=== PATIENT | male | born 1945 | race Hispanic/Latino ===

== ENCOUNTER 2019-04-03 08:51 | Emergency (ER) | payer MEDICARE ==
[2019-04-03 09:22] VITALS: BP 158/84
--- NOTE | 2019-04-03 09:45 | Emergency Department Report ---
ED General Adult HPI - General Chief complaint: Fall Stated complaint: FALL Time Seen by Provider: 04/03/19 09:26 Source: EMS ( EMS documentation not available at time of chart dictation ), RN notes reviewed Mode of arrival: Stretcher Limitations: Physical Limitation - History of Present Illness Initial comments: This patient is a poor historian. He has a history of anemia, on iron sulfate, hypertension, possible dementia The patient is brought to the hospital today by emergency medical services for reported ground-level fall. The patient is a poor historian. The patient cannot tell me when he fell. The patient denies complaints at this time. Apparently, he was seen at [facility] March 27. It was reported at some point verbally that he may have had old facial injuries. No additional history is available at this time. Currently, the patient is not accompanied by friends, family and no is available at this time for collateral information. He had CT scan of the brain, cervical spine and facial bones in the ER, which demonstrate multiple facial bone fractures. They are fairly complex in nature. Please see the individual rep ort. Contacted [facility], and it was conveyed to me that they did not have any record of the patient visiting their facility, and they did not have any corroborating documentation that the patient has known facial fractures. Therefore, the patient will be transferred to [facility], for evaluation by both trauma surgery, and oral surgery. Given advanced age, multiple complex facial fractures, lack of necessary specialty services at this facility, the patient requires transfer for evaluation for services not available. The patient has an emergent medical condition which cannot be definitively managed at this time. The patient is medically suitable for transfer at this time. The trauma surgeon, Dr. Shoemaker has graciously accepted the patient as a transfer. -: unknown Location: face Radiation: other Quality: other Consistency: other Improves with: other Worsens with: other - Related Data Home Medications Medication Instructions Recorded Confirmed Last Taken ALPRAZolam [Alprazolam] 0.5 mg PO TID 09/20/15 11/02/15 11/01/15 Albuterol Sulfate [Ventolin HFA] 2 puff IH TID 09/20/15 11/02/15 11/01/15 Clopidogrel Bisulfate [Clopidogrel] 75 mg PO QDAY 09/20/15 11/01/15 10/25/15 Duloxetine HCl [Cymbalta] 30 mg PO QDAY 09/20/15 11/02/15 11/01/15 Lisinopril 20 mg PO QDAY 09/20/15 11/02/15 11/01/15 Theophylline Anhydrous ER [Avni-24] 300 mg PO BID 09/20/15 11/02/15 11/01/15 amLODIPine [Norvasc] 10 mg PO DAILY 09/20/15 11/02/15 11/01/15 busPIRone [Buspar] 10 mg PO QDAY 09/20/15 11/02/15 11/01/15 Allergies Allergy/AdvReac Type Severity Reaction Status Date / Time Penicillins Allergy Swelling Verified 11/02/15 09:07 ED Review of Systems ROS: Stated complaint: FALL Other details as noted in HPI Comment: Unobtainable due to pts medical conditions (the patient is a poor historian.) ED Past Medical Hx - Past Medical History Hx Hypertension: Yes Hx Asthma: Yes Hx Dementia: Yes Hx HIV: No - Social History Smoking Status: Unknown if ever smoked - Medications Home Medications: Home Medications Medication Instructions Recorded Confirmed Last Taken Type ALPRAZolam [Alprazolam] 0.5 mg PO TID 09/20/15 11/02/15 11/01/15 History Albuterol Sulfate [Ventolin HFA] 2 puff IH TID 09/20/15 11/02/15 11/01/15 History Clopidogrel Bisulfate [Clopidogrel] 75 mg PO QDAY 09/20/15 11/01/15 10/25/15 History Duloxetine HCl [Cymbalta] 30 mg PO QDAY 09/20/15 11/02/15 11/01/15 History Lisinopril 20 mg PO QDAY 09/20/15 11/02/15 11/01/15 History Theophylline Anhydrous ER [Avni-24] 300 mg PO BID 09/20/15 11/02/15 11/01/15 History amLODIPine [Norvasc] 10 mg PO DAILY 09/20/15 11/02/15 11/01/15 History busPIRone [Buspar] 10 mg PO QDAY 09/20/15 11/02/15 11/01/15 History ED Physical Exam - General Limitations: Physical Limitation General appearance: alert, in no apparent distress - Head Head exam: Present: normocephalic, other (left-sided supraorbital ecchymosis) - Eye Eye exam: Present: normal appearance, PERRL, EOMI - ENT ENT exam: Present: normal exam, normal orophraynx, mucous membranes moist, TM's normal bilaterally, normal external ear exam, other (there is no nasal septal hematoma. There is no hemotympanums) - Neck Neck exam: Present: normal inspection, full ROM. Absent: tenderness, meningismus - Respiratory Respiratory exam: Present: normal lung sounds bilaterally. Absent: respiratory distress - Cardiovascular Cardiovascular Exam: Present: regular rate, normal rhythm, normal heart sounds. Absent: bradycardia, tachycardia, irregular rhythm, systolic murmur, diastolic murmur, rubs, gallop - GI/Abdominal GI/Abdominal exam: Present: soft. Absent: distended, tenderness, guarding, rebound, rigid, pulsatile mass - Rectal Rectal exam: Present: normal inspection, normal rectal tone, black stool, other (chaperoned by ER semiconductor processing group leader David). Absent: heme (-) stool - Extremities Exam Extremities exam: Present: normal inspection, full ROM, other (2+ pulses noted in the bilateral upper, lower extremities. There is no long bone tenderness. Musculoskeletal compartments are soft. The pelvis is stable.). Absent: pedal edema, calf tenderness - Back Exam Back exam: Present: normal inspection. Absent: tenderness, CVA tenderness (R), CVA tenderness (L), paraspinal tenderness, vertebral tenderness - Neurological Exam Neurological exam: Present: alert (patient is awake. The patient follows commands. The patient knows his name. The patient does not know where he is, what year it is, or month it is.), other (there is no facial droop. The tongue is midline. Extraocular movements are intact bilaterally. 5 out of 5 strength in 4 extremities. Sensation is intact to light touch in 4 extremities There is good rectal tone.) - Psychiatric Psychiatric exam: Present: anxious - Skin Skin exam: Present: warm, abrasion, ecchymosis ED Course Vital Signs 04/03/19 09:18 Temperature 97.6 F Pulse Rate 81 Respiratory 18 Rate Blood Pressure 158/84 Blood Pressure 158/84 [Right] O2 Sat by Pulse 98 Oximetry ED Medical Decision Making - Lab Data Result diagrams: 04/03/19 10:06 04/03/19 10:06 Vital Signs 04/03/19 09:18 Temperature 97.6 F Pulse Rate 81 Respiratory 18 Rate Blood Pressure 158/84 Blood Pressure 158/84 [Right] O2 Sat by Pulse 98 Oximetry Lab Results 04/03/19 04/03/19 04/03/19 Range/Units 10:06 10:06 10:06 WBC 10.2 (4.5-11.0) K/mm3 RBC 3.89 (3.65-5.03) M/mm3 Hgb 10.6 L (11.8-15.2) gm/dl Hct 31.7 L (35.5-45.6) % MCV 81 L (84-94) fl MCH 27 L (28-32) pg MCHC 33 (32-34) % RDW 21.9 H (13.2-15.2) % Plt Count 212 (140-440) K/mm3 Sodium 139 (137-145) mmol/L Potassium 3.2 L (3.6-5.0) mmol/L Chloride 99.4 (98-107) mmol/L Carbon Dioxide 27 (22-30) mmol/L Anion Gap 16 mmol/L BUN 28 H (9-20) mg/dL Creatinine 1.6 H (0.8-1.5) mg/dL Estimated GFR 43 ml/min BUN/Creatinine Ratio 18 % Glucose 92 (75-100) mg/dL Calcium 9.9 (8.4-10.2) mg/dL Magnesium 2.40 H (1.7-2.3) mg/dL Total Creatine Kinase 43 L (55-170) units/L - EKG Data -: EKG Interpreted by [facility] EKG shows normal: sinus rhythm - EKG Data 04/03/19 12:11 The EKG shows a sinus rhythm, 80 bpm, left axis deviation, left anterior fascicular block, QTC is prolonged, left ventricular hypertrophy, the EKG is abnormal, the EKG is not consistent with ST elevation myocardial infarction. - Radiology Data Radiology results: report reviewed, image reviewed Print Report Referring Physician: ODIN KHAN Patient Name: ODIN SILVA Date of : 1945 Sex: Male Report Date: 2019-04-03 Report Status: Finalized Findings [facility] [address] [place] [address] Cat Scan Report Signed Patient: ODIN SILVA MR# : [id number] : 1945 Acct:[id number] Age/Sex: 73 / M ADM Date: 04/03/19 Loc: ED Attending Dr: Ordering Physician: ODIN KHAN MD Date of Service: 04/03/19 Procedure(s): CT facial bones wo con Accession Number(s): [id number] cc: ODIN KHAN MD CT facial bones wo con INDICATION / CLINICAL INFORMATION: 73 years Male; fall facial abrasions contusions. TECHNIQUE: Thin cut axial images obtained to the facial bones. Sagittal and coronal reconstructions performed. All CT scans at this location are performed using CT dose reduction for ALARA by means of automated exposure control. COMPARISON: None available. FINDINGS: Comminuted inferior orbital wall fracture is seen on the left, with fragments extending up to 5 mm into the maxillary antrum. There is a slight comminuted fracture of the lateral orbital wall on the left. There is also a minimally displaced fracture along the superolateral orbital rim on the left. No significant intraorbital hematoma seen. The globe is normal in appearance. Comminuted fracture of the left zygomatic arch is seen with minimal bony displacement noted. There are mildly comminuted fractures of the anterior and lateral wade of the left maxillary antrum, with some component of minimal displacement and slight overlap of fragments noted. The left maxillary antrum is nearly completely opacified with blood products. Constellation of these findings is somewhat like a tripod fracture on the left. Old condylar neck fracture seen on the right. The condylar head of the mandible is displaced anteriorly from the glenoid fossa of the right temporomandibular joint. Mucous retention cyst/polyps seen in the right maxillary antrum. There is nasal septum deviation leftward directed nasal spur seen-apex of the level of middle meatus. Subcutaneous soft tissue swelling is seen in the left periorbital region, superolaterally and along the expected location of the zygomatic arch in the left malar region. Atherosclerotic disease is seen in the anterior circulation. IMPRESSION: 1. Multiple facial fractures as described above. Signer Name: Andrea Hoyt MD, III Signed: 04/03/2019 11:29 AM Workstation Name: [id number] Transcribed By: HR Dictated By: Andrea Hoyt MD Electronically Authenticated By: Andrea Hoyt MD Signed Date/Time: 04/03/19 1129 Report Referring Physician: ODIN KHAN Patient Name: ODIN SILVA Date of : 1945 Sex: Male Report Date: 2019-04-03 Report Status: Finalized Findings [address] [address] Cat Scan Report Signed Patient: ODIN SILVA MR# : [id number] : 1945 Acct:[id number] Age/Sex: 73 / M ADM Date: 04/03/19 Loc: ED Attending Dr: Ordering Physician: ODIN KHAN MD Date of Service: 04/03/19 Procedure(s): CT head/brain wo con Accession Number(s): [id number] cc: ODIN KHAN MD Head CT without intravenous contrast INDICATION: Closed head trauma today COMPARISON: None FINDINGS: The ventricles are normal in size and position. No hemorrhage or extra-axial fluid collection. No edema or mass effect. 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 A 1 cm low density in the left occipital white matter is nonspecific.. Portions of the sinuses visualized show opacification of the left maxillary sinus with fracture lines present and mucous retention cysts in the right maxillary sinus with right anterior fracture. Left orbital fracture is seen as well as fractures through the left zygomatic arch. Mastoid air cells are well aerated.. No skull fracture identified. IMPRESSION: No acute intracranial abnormality. Facial fractures. Automated exposure control was utilized to diminish radiation dose Signer Name: Thomas Gleason MD Signed: 04/03/2019 11:14 AM Workstation Name: [id number] Transcribed By: JM Dictated By: Thomas Gleason MD Electronically Authenticated By: Thomas Gleason MD Signed Date/Time: 04/03/19 1114 Print Report Referring Physician: ODIN KHAN Patient Name: ODIN SILVA Date of : 1945 Sex: Male Report Date: 2019-04-03 Report Status: Finalized Findings [address] [address] Cat Scan Report Signed Patient: ODIN SILVA MR# : [id number] : 1945 Acct:[id number] Age/Sex: 73 / M ADM Date: 04/03/19 Loc: ED Attending Dr: Ordering Physician: ODIN KHAN MD Date of Service: 04/03/19 Procedure(s): CT cervical spine wo con Accession Number(s): [id number] cc: ODIN KHAN MD CT cervical spine wo con INDICATION / CLINICAL INFORMATION: 73 years Male; fall facial abrasions contusions. TECHNIQUE: Axial CT images of the cervical spine were obtained. Sagittal and coronal reformatted images were produced. All CT scans at this location are performed using CT dose reduction for ALARA by means of automated exposure control. COMPARISON: None available. FINDINGS: POST-SURGICAL CHANGES: None. ALIGNMENT: Normal cervical lordosis seen without significant scoliosis. VERTEBRAE: No signs of fracture. Vertebral bodies are grossly normal in height throughout. There is osseous foraminal narrowing on the left at C3-4 and C5-6 from uncinate and/or facet hypertrophy. Similar findings seen on the right at C3-4, C4-5, C5-6, C6-7. Anterior spondylosis seen at C5-6, C4-5, and C3-4. Mild to moderate facet hypertrophy seen at multiple levels. Most marked findings may be at C3-4 and C4-5. INTRAVERTEBRAL DISCS: Interbody fusion may be present at C6-7. There is disc space narrowing at C5- C6, C7-T1, and C4-5. Mild disc disease seen at various levels with no dominant herniation. Most marked findings may be at C4-5. No significant canal stenosis appreciated. PARASPINAL SOFT TISSUES: No significant abnormality. ADDITIONAL FINDINGS: Old, displaced fracture of the condylar neck of the mandible seen on the right. Please clinically correlate. The condylar head is displaced anterior to the glenoid fossa. IMPRESSION: 1. No signs of acute bony trauma to the cervical spine. 2. Old fracture of the condylar neck of the mandible on the right, as described above. Signer Name: Andrea Hoyt MD, III Signed: 04/03/2019 11:19 AM Workstation Name: [id number] Transcribed By: Dictated By: Andrea Hoyt MD Electronically Authenticated By: Andrea Hoyt MD Signed Date/Time: 04/03/19 1119 Print Report Referring Physician: ODIN KHAN Patient Name: ODIN SILVA Date of : 1945 Sex: Male Report Date: 2019-04-03 Report Status: Finalized Findings [address] [address] XRay Report Signed Patient: ODIN ISLVA MR# : [id number] : 1945 Acct:[id number] Age/Sex: 73 / M ADM Date: 04/03/19 Loc: ED Attending Dr: Ordering Physician: ODIN KHAN MD Date of Service: 04/03/19 Procedure(s): XR pelvis 1-2V Accession Number(s): [id number] cc: ODIN KHAN MD Fluoro Time In Minutes: AP pelvis INDICATION: Pain following fall today FINDINGS: The hip joints are grossly intact. No fracture or diastasis. SI joints are widely patent. No significant abnormality. Signer Name: Thomas Gleason MD Signed: 04/03/2019 10:53 AM Workstation Name: [id number] Transcribed By: JM Dictated By: Thomas Gleason MD Electronically Authenticated By: Thomas Gleason MD Signed Date/Time: 04/03/19 1053 Print Report Referring Physician: ODIN KHAN Patient Name: ODIN SILVA Date of : 1945 Sex: Male Report Date: 2019-04-03 Report Status: Finalized Findings [address] [address] XRay Report Signed Patient: ODIN SILVA MR# : [id number] : 1945 Acct:[id number] Age/Sex: 73 / M ADM Date: 04/03/19 Loc: ED Attending Dr: Ordering Physician: ODIN KHAN MD Date of Service: 04/03/19 Procedure(s): XR chest 1V ap Accession Number(s): [id number] cc: ODIN KHAN MD Fluoro Time In Minutes: CHEST 1 VIEW INDICATION / CLINICAL INFORMATION: fall weak. COMPARISON: None available. FINDINGS: SUPPORT DEVICES: None. HEART / MEDIASTINUM: No significant abnormality. LUNGS / PLEURA: No significant pulmonary or pleural abnormality. No pneumothorax. ADDITIONAL FINDINGS: No significant additional findings. IMPRESSION: 1. No significant change Signer Name: Thomas Gleason MD Signed: 04/03/2019 10:53 AM Workstation Name: [id number] Transcribed By: ANASTACIA Dictated By: Thomas Gleason MD Electronically Authenticated By: Thomas Gleason MD Signed Date/Time: 04/03/191052 DD/ 52 TD/TT: - Medical Decision Making Differential diagnosis, including not limited to: Multiple facial fractures, intracranial injury, cervical spine injury, pneumonia, urinary tract infection, dehydration, electrolyte derangement. Assessment and plan: 73-year-old gentleman, status post reported fall, multiple complex facial fractures of unknown chronicity, appear to be acute/subacute, without corroborating documentation of prior evaluation. Patient requires evaluation at trauma facility for higher level of care. He will be given IV fluids, tetanus vaccination, potassium will be repleted, emp iric prophylactic doxycycline. Critical care attestation.: If time is entered above; I have spent that time in minutes in the direct care of this critically ill patient, excluding procedure time. ED Disposition Clinical Impression: Multiple facial bone fractures, Fall, NAOMI (acute kidney injury), Hypokalemia Disposition: DC/TX- [facility] IP Is pt being admited?: No Does the pt Need Aspirin: No Condition: Serious Referrals: PRIMARY CARE, [Primary Care Provider] - 3-5 Days
[2019-04-03 10:23] LABS: Hematocrit 31.7 % (35.5-45.6); Hemoglobin 10.6 gm/dl (11.8-15.2); Mean Corpuscular HGB Conc 33 % (32-34); Mean Corpuscular Volume 81 fl (84-94); Platelet Count 212 K/mm3 (140-440); Red Blood Count 3.89 M/mm3 (3.65-5.03)
[2019-04-03 10:24] LABS: Red Cell Distribution Width 21.9 % (13.2-15.2)
[2019-04-03 10:36] LABS: Calcium 9.9 mg/dL (8.4-10.2)
[2019-04-03] MEDS ORDERED: K-DUR PO ONE (10:54)
[2019-04-03] MEDS ORDERED: NACL 0.9% 500 ML 500 ML IV ONE (10:54)
--- NOTE | 2019-04-03 10:57 | XRay Report ---
AP pelvis INDICATION: Pain following fall today FINDINGS: The hip joints are grossly intact. No fracture or diastasis. SI joints are widely patent. N o significant abnormality. Signer Name: Thomas Gleason MD Signed: 04/03/2019 10:53 AM Workstation Name: [id number]
--- NOTE | 2019-04-03 10:58 | XRay Report ---
CHEST 1 VIEW INDICATION / CLINICAL INFORMATION: fall weak. COMPARISON: None available. FINDINGS: SUPPORT DEVICES: None. HEART / MEDIASTINUM: No significant abnormality. LUNGS / PLEURA: No significant pulmonary or pleural abnormality. No pneumothorax. ADDITIONAL FINDINGS: No significant additional findings. IMPRESSION: 1. No significant change Signer Name: Thomas Gleason MD Signed: 04/03/2019 10:53 AM Workstation Name: [id number]
--- NOTE | 2019-04-03 11:19 | Cat Scan Report ---
Head CT without intravenous contrast INDICATION: Closed head trauma today COMPARISON: None FINDINGS: The ventricles are normal in size and position. No hemorrhage or extra-axial fluid collecti on. No edema or mass effect. 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 A 1 cm low density in the left occipital white matter is nonspecific.. Portions o f the sinuses visualized show opacification of the left maxillary sinus with fracture lines present a nd mucous retention cysts in the right maxillary sinus with right anterior fracture. Left orbital fra cture is seen as well as fractures through the left zygomatic arch. Mastoid air cells are well aerate d.. No skull fracture identified. IMPRESSION: No acute intracranial abnormality. Facial fractures. Automated exposure control was utilized to diminish radiation dose Signer Name: Thomas Gleason MD Signed: 04/03/2019 11:14 AM Workstation Name: [id number]
--- NOTE | 2019-04-03 11:24 | Cat Scan Report ---
CT cervical spine wo con INDICATION / CLINICAL INFORMATION: 73 years Male; fall facial abrasions contusions. TECHNIQUE: Axial CT images of the cervical spine were obtained. Sagittal and coronal reformatted images were pr oduced. All CT scans at this location are performed using CT dose reduction for ALARA by means of aut omated exposure control. COMPARISON: None available. FINDINGS: POST-SURGICAL CHANGES: None. ALIGNMENT: Normal cervical lordosis seen without significant scoliosis. VERTEBRAE: No signs of fracture. Vertebral bodies are grossly normal in height throughout. There is osseous foraminal narrowing on the left at C3-4 and C5-6 from uncinate and/or facet hypertro phy. Similar findings seen on the right at C3-4, C4-5, C5-6, C6-7. Anterior spondylosis seen at C5-6, C4-5, and C3-4. Mild to moderate facet hypertrophy seen at multiple levels. Most marked findings may be at C3-4 and C 4-5. INTRAVERTEBRAL DISCS: Interbody fusion may be present at C6-7. There is disc space narrowing at C5-C6 , C7-T1, and C4-5. Mild disc disease seen at various levels with no dominant herniation. Most marked findings may be at C4-5. No significant canal stenosis appreciated. PARASPINAL SOFT TISSUES: No significant abnormality. ADDITIONAL FINDINGS: Old, displaced fracture of the condylar neck of the mandible seen on the right. Please clinically correlate. The condylar head is displaced anterior to the glenoid fossa. IMPRESSION: 1. No signs of acute bony trauma to the cervical spine. 2. Old fracture of the condylar neck of the mandible on the right, as described above. Signer Name: Andrea Hoyt MD, III Signed: 04/03/2019 11:19 AM Workstation Name: [id number]
--- NOTE | 2019-04-03 11:34 | Cat Scan Report ---
CT facial bones wo con INDICATION / CLINICAL INFORMATION: 73 years Male; fall facial abrasions contusions. TECHNIQUE: Thin cut axial images obtained to the facial bones. Sagittal and coronal reconstructions performed. A ll CT scans at this location are performed using CT dose reduction for ALARA by means of automated ex posure control. COMPARISON: None available. FINDINGS: Comminuted inferior orbital wall fracture is seen on the left, with fragments extending up to 5 mm in to the maxillary antrum. There is a slight comminuted fracture of the lateral orbital wall on the lef t. There is also a minimally displaced fracture along the superolateral orbital rim on the left. No s ignificant intraorbital hematoma seen. The globe is normal in appearance. Comminuted fracture of the left zygomatic arch is seen with minimal bony displacement noted. There are mildly comminuted fractures of the anterior and lateral wade of the left maxillary antrum, with some component of minimal displacement and slight overlap of fragments noted. The left maxillar y antrum is nearly completely opacified with blood products. Constellation of these findings is somewhat like a tripod fracture on the left. Old condylar neck fracture seen on the right. The condylar head of the mandible is displaced anterior ly from the glenoid fossa of the right temporomandibular joint. Mucous retention cyst/polyps seen in the right maxillary antrum. There is nasal septum deviation leftward directed nasal spur seen-apex of the level of middle meatus. Subcutaneous soft tissue swelling is seen in the left periorbital region, superolaterally and along t he expected location of the zygomatic arch in the left malar region. Atherosclerotic disease is seen in the anterior circulation. IMPRESSION: 1. Multiple facial fractures as described above. Signer Name: Andrea Hoyt MD, III Signed: 04/03/2019 11:29 AM Workstation Name: [id number]
[2019-04-03] MEDS: KCL 10MEQ/100ML 10 MEQ/100 ML BAG IV SCH ×2 (11:51→12:48)
[2019-04-03] MEDS ORDERED: VIBRAMYCIN PO ONE (12:13)
[2019-04-03] MEDS ORDERED: BOOSTRIX IM ONE (12:13)
== END 2019-04-03 14:23 | disposition short-term general hospital (02) ==
LOC: ED 08:51
DX: S02.92XD Unspecified fracture of facial bones, subsequent encounter for fracture with routine healing (principal); E87.6 Hypokalemia; N17.9 Acute kidney failure, unspecified; I10 Essential (primary) hypertension; J45.909 Unspecified asthma, uncomplicated; F03.90 Unspecified dementia, unspecified severity, without behavioral disturbance, psychotic disturbance, mood disturbance, and anxiety; Z79.899 Other long term (current) drug therapy; Z88.0 Allergy status to penicillin
CPT/HCPCS: 36415; 70450; 70486; 71045; 72125; 72170; 80048; 82271; 82550; 83735; 85027; 90471; 90715; 93005; 93010; 96365; 99285; J3480; J7040

== ENCOUNTER 2021-03-03 09:47 | Emergency (ER) | payer MEDICARE ==
[2021-03-03] MEDS ORDERED: SODIUM CHLORIDE 0.9% 1000 ML 1,000 ML IV ONE ×3 (09:59→10:38)
[2021-03-03] MEDS: NORepinephrine/NS 4 MG-250 ML 4 MG/250 ML BAG IV SCH ×2 (10:00→18:04)
--- NOTE | 2021-03-03 10:44 | XRay Report ---
CHEST 1 VIEW 03/03/2021 9:34 AM INDICATION / CLINICAL INFORMATION: Post cardiac arrest. Prehospital intubation. COMPARISON: 04/03/19. FINDINGS: SUPPORT DEVICES: The tip of the endotracheal tube is approximately 6 cm above the chrissy. The tip of the nasogastric tube overlies the gastric body. HEART / MEDIASTINUM: The heart size and pulmonary vasculature are normal. LUNGS / PLEURA: There is mild to moderate pleuroparenchymal disease in the right mid to lower hemitho rax with mild associated volume loss. The left lung is clear. No pneumothorax. ADDITIONAL FINDINGS: No significant additional findings. IMPRESSION: 1. Endotracheal tube in satisfactory position. 2. Mild to moderate pleuroparenchymal opacity in the right mid to lower hemithorax. Aspiration pneumo kiley should be considered. Signer Name: Albin Mayer MD Signed: 03/03/2021 10:40 AM Workstation Name: [id number]
[2021-03-03 10:48] LABS: Hematocrit 26.7 % (35.5-45.6); Hemoglobin 8.3 gm/dl (11.8-15.2); Mean Corpuscular HGB Conc 31 % (32-34); Mean Corpuscular Volume 100 fl (84-94); Platelet Count 208 K/mm3 (140-440); Red Blood Count 2.66 M/mm3 (3.65-5.03); Red Cell Distribution Width 15.8 % (13.2-15.2)
[2021-03-03] MEDS ORDERED: metroNIDAZOLE/NS 500 MG/100 ML 500 MG/100 ML BAG IV ONE (10:48)
[2021-03-03 10:50] LABS: INR 1.37 (0.87-1.13)
--- NOTE | 2021-03-03 10:57 | Emergency Department Report ---
ED CPR HPI - General Stated Complaint: CARIDAC ARREST Time Seen by Provider: 03/03/21 09:55 Source: EMS, old records reviewed ([facility]) Mode of arrival: Stretcher Limitations: Altered Mental Status, Physical Limitation - History of Present Illness Initial Comments: 75-year-old male with a past medical history of COPD, Alzheimer's disease, COVID-19 diagnosis February 15, chronic aphasia,major depressive disorder, and hypertension presents to the hospital from [facility] halfway for cardiopulmonary arrest. Patient last known well time was 8:30 AM. Patient was eating breakfast and likely aspirated/choked as per EMS. EMS arrival at 9:10 a.m. with bystander CPR in progress. Patient orally intubated with 7.0 ET tube with food parts particles noted in the airway. Breath sounds auscultated and there was capnometer color change after intubation. Patient in PEA arrest upon EMS arrival and throughout duration of resuscitation. Patient received total of 2 epinephrine boluses and 1 amp of sodium bicarb. Accu-Chek not obtained. CPR in progress upon EMS arrival. - Related Data Home Medications Medication Instructions Recorded Confirmed Last Taken ALPRAZolam [Alprazolam] 0.5 mg PO TID 09/20/15 11/02/15 11/01/15 Albuterol Sulfate [Ventolin HFA] 2 puff IH TID 09/20/15 11/02/15 11/01/15 Clopidogrel Bisulfate [Clopidogrel] 75 mg PO QDAY 09/20/15 11/01/15 10/25/15 Duloxetine HCl [Cymbalta] 30 mg PO QDAY 09/20/15 11/02/15 11/01/15 Lisinopril 20 mg PO QDAY 09/20/15 11/02/15 11/01/15 Theophylline Anhydrous ER (Nf) 300 mg PO BID 09/20/15 11/02/15 11/01/15 [Avni-24] amLODIPine [Norvasc] 10 mg PO DAILY 09/20/15 11/02/15 11/01/15 busPIRone [Buspar] 10 mg PO QDAY 09/20/15 11/02/15 11/01/15 Allergies Allergy/AdvReac Type Severity Reaction Status Date / Time Penicillins Allergy Swelling Verified 11/02/15 09:07 ED Review of Systems ROS: Stated complaint: CARIDAC ARREST Other details as noted in HPI Comment: All other systems reviewed and negative ED Past Medical Hx - Past Medical History Hx Hypertension: Yes Hx Asthma: Yes Hx Dementia: Yes Hx HIV: No - Social History Smoking Status: Unknown if ever smoked - Medications Home Medications: Home Medications Medication Instructions Recorded Confirmed Last Taken Type ALPRAZolam [Alprazolam] 0.5 mg PO TID 09/20/15 11/02/15 11/01/15 History Albuterol Sulfate [Ventolin HFA] 2 puff IH TID 09/20/15 11/02/15 11/01/15 History Clopidogrel Bisulfate [Clopidogrel] 75 mg PO QDAY 09/20/15 11/01/15 10/25/15 History Duloxetine HCl [Cymbalta] 30 mg PO QDAY 09/20/15 11/02/15 11/01/15 History Lisinopril 20 mg PO QDAY 09/20/15 11/02/15 11/01/15 History Theophylline Anhydrous ER (Nf) 300 mg PO BID 09/20/15 11/02/15 11/01/15 History [Avni-24] amLODIPine [Norvasc] 10 mg PO DAILY 09/20/15 11/02/15 11/01/15 History busPIRone [Buspar] 10 mg PO QDAY 09/20/15 11/02/15 11/01/15 History ED Physical Exam - Other Other exam information: General: Unresponsive Head: Atraumatic Eyes: Pupils equal reactive to light ENT: Orally intubated 7.0 ET tube 23 at Neck: Normal appearance, no midline tenderness Chest: No spontaneous respirations, clear equal bilaterally with bagging CV: Pulseless upon arrival with organized narrow complex QRS on the monitor Abdomen: Soft, normal bowel sounds, nontender, nondistended, no rebound or guarding Back: Normal inspection Extremity: No deformity Neuro: Unresponsive, no spontaneous movement, GCS Skin: Warm, bruising to anterior chest wall area of chest compressions ED Course Vital Signs 03/03/21 03/03/21 03/03/21 09:58 10:00 10:16 Temperature Pulse Rate 121 H 109 H Respiratory Rate Blood Pressure 171/90 O2 Sat by Pulse 93 32 L Oximetry 03/03/21 03/03/21 03/03/21 10:30 10:45 10:51 Temperature Pulse Rate 97 H 94 H 82 Respiratory 20 20 Rate Blood Pressure 91/53 97/55 100/51 O2 Sat by Pulse 100 96 95 Oximetry 03/03/21 03/03/21 03/03/21 11:00 11:15 11:30 Temperature Pulse Rate 77 69 70 Respiratory 21 20 15 Rate Blood Pressure 93/50 92/46 96/52 O2 Sat by Pulse 90 97 Oximetry 03/03/21 03/03/21 03/03/21 11:33 11:41 11:45 Temperature 92.3 F L Pulse Rate 71 Respiratory 13 Rate Blood Pressure 86/52 O2 Sat by Pulse 83 L 80 L Oximetry 03/03/21 03/03/21 03/03/21 12:00 12:15 12:30 Temperature Pulse Rate 73 75 78 Respiratory 15 16 15 Rate Blood Pressure 102/56 107/55 106/56 O2 Sat by Pulse 90 88 Oximetry 03/03/21 03/03/21 03/03/21 12:45 13:00 13:15 Temperature Pulse Rate 78 82 81 Respiratory 15 13 17 Rate Blood Pressure 85/46 98/54 107/64 O2 Sat by Pulse 76 L 82 L Oximetry 03/03/21 03/03/21 03/03/21 13:16 13:30 13:45 Temperature Pulse Rate 83 82 81 Respiratory 14 22 Rate Blood Pressure 96/60 103/64 90/52 O2 Sat by Pulse 81 L 87 86 Oximetry 03/03/21 03/03/21 03/03/21 14:00 14:15 14:30 Temperature Pulse Rate 81 81 82 Respiratory 21 22 28 H Rate Blood Pressure 91/59 108/66 113/64 O2 Sat by Pulse 87 93 Oximetry 03/03/21 03/03/21 03/03/21 14:45 15:00 15:15 Temperature Pulse Rate 83 84 85 Respiratory 20 27 H 26 H Rate Blood Pressure 103/64 109/68 104/63 O2 Sat by Pulse 89 83 L Oximetry 03/03/21 03/03/21 03/03/21 15:30 15:45 16:00 Temperature Pulse Rate 86 86 87 Respiratory 18 21 30 H Rate Blood Pressure 119/69 112/67 106/71 O2 Sat by Pulse 83 L 85 84 Oximetry 03/03/21 03/03/21 03/03/21 16:15 16:16 16:30 Temperature Pulse Rate 88 88 87 Respiratory 18 27 H Rate Blood Pressure 110/68 110/68 111/59 O2 Sat by Pulse 80 L 90 80 L Oximetry 03/03/21 03/03/21 03/03/21 16:45 17:00 19:43 Temperature Pulse Rate 87 88 0 L Respiratory 25 H 25 H Rate Blood Pressure 106/66 102/63 0/0 O2 Sat by Pulse 83 L 0 L Oximetry - Reevaluation(s) Reevaluation #1: 03/03/21 Resuscitation continued upon patient arrival to the ED. Patient received dose of epi with return of spontaneous circulation. Levophed initiated for hypotension along with normal saline bolus. While prepping to place central line patient was noted to be pulseless with a systolic pressure of 48 noted on a BP monitor. Chest compressions briefly resumed with an additional dose of epinephrine with return of spontaneous circulation. Ventilator FiO2 increased from 50% to 100%. Central lines placed by me, NG tube, and Butler placed by nurse, EKG obtained without signs of ST elevation IN. Fluid boluses on Levophed continued - Consultations Consultation #1: 03/03/21 12:36 Case discussed with critical care attending Dr. Hernandez. ABG results discussed. Call transfered to respiratory therapist Lay to make appropriate changes - Central Line Placement Right Femoral Consent Obtained: emergent situation Time Out Performed: Yes Patient Placed on Monitor/Pulse Ox: Yes Prep: mask, gown, gloves Central Line Prep: Chlorhexidine scrub Ultrasound Used for Placement: No Central Line Lumen Inserted: triple Reason for Insertion: Volume Resuscitation Bloods Obtained for Lab: Yes Central Line Position: good blood return, sutured in place with nyl Dressing Applied: Tegaderm Patient Tolerated Procedure: well Complications: none ED Medical Decision Making - Lab Data Result diagrams: 03/03/21 10:23 03/03/21 10:23 Lab Results 03/03/21 03/03/21 03/03/21 Range/Units 10:21 10:23 10:23 WBC 24.7 H (4.5-11.0) K/mm3 RBC 2.66 L (3.65-5.03) M/mm3 Hgb 8.3 L (11.8-15.2) gm/dl Hct 26.7 L (35.5-45.6) % MCV 100 H (84-94) fl MCH 31 (28-32) pg MCHC 31 L (32-34) % RDW 15.8 H (13.2-15.2) % Plt Count 208 (140-440) K/mm3 Lymph # (Auto) Boom Master Add Manual Diff Complete Total Counted 100 Seg Neuts % (Manual) 54.0 (40.0-70.0) % Lymphocytes % (Manual) 29.0 (13.4-35.0) % Reactive Lymphs % (Man) 2.0 % Monocytes % (Manual) 6.0 (0.0-7.3) % Metamyelocytes % 7.0 % Myelocytes % 2.0 % Nucleated RBC % Not Reportable Seg Neutrophils # Man 13.3 H (1.8-7.7) K/mm3 Band Neutrophils # 0.0 K/mm3 Lymphocytes # (Manual) 7.2 H (1.2-5.4) K/mm3 Abs React Lymphs (Man) 0.5 K/mm3 Monocytes # (Manual) 1.5 H (0.0-0.8) K/mm3 Eosinophils # (Manual) 0.0 (0.0-0.4) K/mm3 Basophils # (Manual) 0.0 (0.0-0.1) K/mm3 Metamyelocytes # 1.7 K/mm3 Myelocytes # 0.5 K/mm3 Promyelocytes # 0.0 K/mm3 Blast Cells # 0.0 K/mm3 WBC Morphology Not Reportable Hypersegmented Neuts Not Reportable Hyposegmented Neuts Not Reportable Hypogranular Neuts Not Reportable Smudge Cells Not Reportable Toxic Granulation Not Reportable Toxic Vacuolation Not Reportable Dohle Bodies Not Reportable Pelger-Huet Anomaly Not Reportable Rober Rods Not Reportable Platelet Estimate Consistent w auto Clumped Platelets Not Reportable Plt Clumps, EDTA Not Reportable Large Platelets Not Reportable Giant Platelets Not Reportable Platelet Satelliting Not Reportable Plt Morphology Comment Not Reportable RBC Morphology Normal Dimorphic RBCs Not Reportable Polychromasia Not Reportable Hypochromasia Not Reportable Poikilocytosis Not Reportable Anisocytosis Not Reportable Microcytosis Not Reportable Macrocytosis Not Reportable Spherocytes Not Reportable Pappenheimer Bodies Not Reportable Sickle Cells Not Reportable Target Cells Not Reportable Tear Drop Cells Not Reportable Ovalocytes Not Reportable Helmet Cells Not Reportable [place] Bodies Not Reportable [place] Rings Not Reportable [place] Cells Not Reportable Bite Cells Not Reportable Crenated Cell Not Reportable Elliptocytes Not Reportable Acanthocytes (Spur) Not Reportable Rouleaux Not Reportable Hemoglobin C Crystals Not Reportable Schistocytes Not Reportable Malaria parasites Not Reportable Richard Bodies Not Reportable Hem Pathologist Commnt No PT (12.2-14.9) Sec. INR (0.87-1.13) APTT (24.2-36.6) Sec. ABG pH 7.033 L (7.320-7.450) POC ABG pCO2 44.1 (32.0-48.0) mmHg POC ABG pO2 263.7 H (83-108) mmHg POC ABG HCO3 11.5 ABG O2 Saturation 99.4 (0-100) POC ABG Base Excess -18.3 ABG Hemoglobin 9.1 L (12.0-17.5) ABG Oxyhemoglobin 98.5 H (94-98) ABG Methemoglobin 0.3 (0.0-1.5) ABG Sodium 139.2 (136.0-145.0) mmol/L ABG Potassium 4.1 (3.40-4.50) mmol/L ABG Chloride 111.0 H (98-107) mmol/L ABG Glucose 255 H (65-95) mg/dL Carboxyhemoglobin 0.6 (0.5-1.5) FiO2 % 100.0 Sodium 143 (137-145) mmol/L Potassium 4.4 (3.6-5.0) mmol/L Chloride 108.4 H (98-107) mmol/L Carbon Dioxide 14 L (22-30) mmol/L Anion Gap 25 mmol/L BUN 28 H (9-20) mg/dL Creatinine 1.2 (0.8-1.3) mg/dL Estimated GFR 59 ml/min BUN/Creatinine Ratio 23 % Glucose 282 H (75-100) mg/dL Lactic Acid (0.7-2.0) mmol/L Calcium 8.2 L (8.4-10.2) mg/dL Magnesium (1.7-2.3) mg/dL Total Bilirubin 0.70 (0.1-1.2) mg/dL AST 392 H (5-40) units/L ALT 229 H (7-56) units/L Alkaline Phosphatase 138 H (35-129) units/L Troponin T < 0.010 (0.00-0.029) ng/mL Total Protein 4.0 L (6.3-8.2) g/dL Albumin 2.2 L (3.9-5) g/dL Albumin/Globulin Ratio 1.2 % Arterial Blood Glucose 255 H (65-95) mg/dL Arterial Blood Ionized Calcium 4.5 L (4.6-5.3) mg/dL Urine Color (Yellow) Urine Turbidity (Clear) Urine pH (5.0-7.0) Ur Specific [place] (1.003-1.030) Urine Protein (Negative) mg/dL Urine Glucose (UA) (Negative) mg/dL Urine Ketones (Negative) mg/dL Urine Blood (Negative) Urine Nitrite (Negative) Urine Bilirubin (Negative) Urine Urobilinogen (<2.0) mg/dL Ur Leukocyte Esterase (Negative) Urine WBC (Auto) (0.0-6.0) /HPF Urine RBC (Auto) (0.0-6.0) /HPF Hyaline Casts /LPF Urine Mucus /HPF 03/03/21 03/03/21 03/03/21 Range/Units 10:23 10:23 10:23 WBC (4.5-11.0) K/mm3 RBC (3.65-5.03) M/mm3 Hgb (11.8-15.2) gm/dl Hct (35.5-45.6) % MCV (84-94) fl MCH (28-32) pg MCHC (32-34) % RDW (13.2-15.2) % Plt Count (140-440) K/mm3 Lymph # (Auto) Add Manual Diff Total Counted Seg Neuts % (Manual) (40.0-70.0) % Lymphocytes % (Manual) (13.4-35.0) % Reactive Lymphs % (Man) % Monocytes % (Manual) (0.0-7.3) % Metamyelocytes % % Myelocytes % % Nucleated RBC % Seg Neutrophils # Man (1.8-7.7) K/mm3 Band Neutrophils # K/mm3 Lymphocytes # (Manual) (1.2-5.4) K/mm3 Abs React Lymphs (Man) K/mm3 Monocytes # (Manual) (0.0-0.8) K/mm3 Eosinophils # (Manual) (0.0-0.4) K/mm3 Basophils # (Manual) (0.0-0.1) K/mm3 Metamyelocytes # K/mm3 Myelocytes # K/mm3 Promyelocytes # K/mm3 Blast Cells # K/mm3 WBC Morphology Hypersegmented Neuts Hyposegmented Neuts Hypogranular Neuts Smudge Cells Toxic Granulation Toxic Vacuolation Dohle Bodies Pelger-Huet Anomaly Rober Rods Platelet Estimate Clumped Platelets Plt Clumps, EDTA Large Platelets Giant Platelets Platelet Satelliting Plt Morphology Comment RBC Morphology Dimorphic RBCs Polychromasia Hypochromasia Poikilocytosis Anisocytosis Microcytosis Macrocytosis Spherocytes Pappenheimer Bodies Sickle Cells Target Cells Tear Drop Cells Ovalocytes Helmet Cells [place] Bodies [place] Rings Gonzalo Cells Bite Cells Crenated Cell Elliptocytes Acanthocytes (Spur) Rouleaux Hemoglobin C Crystals Schistocytes Malaria parasites Richard Bodies Hem Pathologist Commnt PT 17.4 H (12.2-14.9) Sec. INR 1.37 H (0.87-1.13) APTT 44.0 H (24.2-36.6) Sec. ABG pH (7.320-7.450) POC ABG pCO2 (32.0-48.0) mmHg POC ABG pO2 (83-108) mmHg POC ABG HCO3 ABG O2 Saturation (0-100) POC ABG Base Excess ABG Hemoglobin (12.0-17.5) ABG Oxyhemoglobin (94-98) ABG Methemoglobin (0.0-1.5) ABG Sodium (136.0-145.0) mmol/L ABG Potassium (3.40-4.50) mmol/L ABG Chloride (98-107) mmol/L ABG Glucose (65-95) mg/dL Carboxyhemoglobin (0.5-1.5) FiO2 % Sodium (137-145) mmol/L Potassium (3.6-5.0) mmol/L Chloride (98-107) mmol/L Carbon Dioxide (22-30) mmol/L Anion Gap mmol/L BUN (9-20) mg/dL Creatinine (0.8-1.3) mg/dL Estimated GFR ml/min BUN/Creatinine Ratio % Glucose (75-100) mg/dL Lactic Acid 11.40 H* (0.7-2.0) mmol/L Calcium (8.4-10.2) mg/dL Magnesium 2.30 (1.7-2.3) mg/dL Total Bilirubin (0.1-1.2) mg/dL AST (5-40) units/L ALT (7-56) units/L Alkaline Phosphatase (35-129) units/L Troponin T (0.00-0.029) ng/mL Total Protein (6.3-8.2) g/dL Albumin (3.9-5) g/dL Albumin/Globulin Ratio % Arterial Blood Glucose (65-95) mg/dL Arterial Blood Ionized Calcium (4.6-5.3) mg/dL Urine Color (Yellow) Urine Turbidity (Clear) Urine pH (5.0-7.0) Ur Specific [place] (1.003-1.030) Urine Protein (Negative) mg/dL Urine Glucose (UA) (Negative) mg/dL Urine Ketones (Negative) mg/dL Urine Blood (Negative) Urine Nitrite (Negative) Urine Bilirubin (Negative) Urine Urobilinogen (<2.0) mg/dL Ur Leukocyte Esterase (Negative) Urine WBC (Auto) (0.0-6.0) /HPF Urine RBC (Auto) (0.0-6.0) /HPF Hyaline Casts /LPF Urine Mucus /HPF 03/03/21 03/03/21 Range/Units 10:23 11:40 WBC (4.5-11.0) K/mm3 RBC (3.65-5.03) M/mm3 Hgb (11.8-15.2) gm/dl Hct (35.5-45.6) % MCV (84-94) fl MCH (28-32) pg MCHC (32-34) % RDW (13.2-15.2) % Plt Count (140-440) K/mm3 Lymph # (Auto) Add Manual Diff Total Counted Seg Neuts % (Manual) (40.0-70.0) % Lymphocytes % (Manual) (13.4-35.0) % Reactive Lymphs % (Man) % Monocytes % (Manual) (0.0-7.3) % Metamyelocytes % % Myelocytes % % Nucleated RBC % Seg Neutrophils # Man (1.8-7.7) K/mm3 Band Neutrophils # K/mm3 Lymphocytes # (Manual) (1.2-5.4) K/mm3 Abs React Lymphs (Man) K/mm3 Monocytes # (Manual) (0.0-0.8) K/mm3 Eosinophils # (Manual) (0.0-0.4) K/mm3 Basophils # (Manual) (0.0-0.1) K/mm3 Metamyelocytes # K/mm3 Myelocytes # K/mm3 Promyelocytes # K/mm3 Blast Cells # K/mm3 WBC Morphology TNR Hypersegmented Neuts Hyposegmented Neuts Hypogranular Neuts Smudge Cells Toxic Granulation Toxic Vacuolation Dohle Bodies Pelger-Huet Anomaly Rober Rods Platelet Estimate Clumped Platelets Plt Clumps, EDTA Large Platelets Giant Platelets Platelet Satelliting Plt Morphology Comment RBC Morphology Dimorphic RBCs Polychromasia Hypochromasia Poikilocytosis Anisocytosis Microcytosis Macrocytosis Spherocytes Pappenheimer Bodies Sickle Cells Target Cells Tear Drop Cells Ovalocytes Helmet Cells [place] Bodies [place] Rings Gonzalo Cells Bite Cells Crenated Cell Elliptocytes Acanthocytes (Spur) Rouleaux Hemoglobin C Crystals Schistocytes Malaria parasites Richard Bodies Hem Pathologist Commnt PT (12.2-14.9) Sec. INR (0.87-1.13) APTT (24.2-36.6) Sec. ABG pH (7.320-7.450) POC ABG pCO2 (32.0-48.0) mmHg POC ABG pO2 (83-108) mmHg POC ABG HCO3 ABG O2 Saturation (0-100) POC ABG Base Excess ABG Hemoglobin (12.0-17.5) ABG Oxyhemoglobin (94-98) ABG Methemoglobin (0.0-1.5) ABG Sodium (136.0-145.0) mmol/L ABG Potassium (3.40-4.50) mmol/L ABG Chloride (98-107) mmol/L ABG Glucose (65-95) mg/dL Carboxyhemoglobin (0.5-1.5) FiO2 % Sodium (137-145) mmol/L Potassium (3.6-5.0) mmol/L Chloride (98-107) mmol/L Carbon Dioxide (22-30) mmol/L Anion Gap mmol/L BUN (9-20) mg/dL Creatinine (0.8-1.3) mg/dL Estimated GFR ml/min BUN/Creatinine Ratio % Glucose (75-100) mg/dL Lactic Acid (0.7-2.0) mmol/L Calcium (8.4-10.2) mg/dL Magnesium (1.7-2.3) mg/dL Total Bilirubin (0.1-1.2) mg/dL AST (5-40) units/L ALT (7-56) units/L Alkaline Phosphatase (35-129) units/L Troponin T (0.00-0.029) ng/mL Total Protein (6.3-8.2) g/dL Albumin (3.9-5) g/dL Albumin/Globulin Ratio % Arterial Blood Glucose (65-95) mg/dL Arterial Blood Ionized Calcium (4.6-5.3) mg/dL Urine Color Yellow (Yellow) Urine Turbidity Clear (Clear) Urine pH 5.0 (5.0-7.0) Ur Specific [place] 1.015 (1.003-1.030) Urine Protein 30 mg/dl (Negative) mg/dL Urine Glucose (UA) Neg (Negative) mg/dL Urine Ketones Neg (Negative) mg/dL Urine Blood Neg (Negative) Urine Nitrite Neg (Negative) Urine Bilirubin Neg (Negative) Urine Urobilinogen < 2.0 (<2.0) mg/dL Ur Leukocyte Esterase Neg (Negative) Urine WBC (Auto) 2.0 (0.0-6.0) /HPF Urine RBC (Auto) 1.0 (0.0-6.0) /HPF Hyaline Casts 1 /LPF Urine Mucus Few /HPF - EKG Data -: EKG Interpreted by Ma EKG shows normal: sinus rhythm, ST-T waves (no stemi) Rate: normal (95) - Radiology Data Radiology results: report reviewed CHEST 1 VIEW 03/03/2021 9:34 AM INDICATION / CLINICAL INFORMATION: Post cardiac arrest. Prehospital intubation. COMPARISON: 04/03/19. FINDINGS: SUPPORT DEVICES: The tip of the endotracheal tube is approximately 6 cm above the chrissy. The tip of the nasogastric tube overlies the gastric body. HEART / MEDIASTINUM: The heart size and pulmonary vasculature are normal. LUNGS / PLEURA: There is mild to moderate pleuroparenchymal disease in the right mid to lower hemithorax with mild associated volume loss. The left lung is clear. No pneumothorax. ADDITIONAL FINDINGS: No significant additional findings. IMPRESSION: 1. Endotracheal tube in satisfactory position. 2. Mild to moderate pleuroparenchymal opacity in the right mid to lower hemithorax. Aspiration pneumonia should be considered. - Medical Decision Making 75-year-old male presents to the hospital status post cardiopulmonary arrest likely secondary to aspiration during breakfast. Positive retaining spontaneous circulation upon arrival to the ED with brief loss of pulse with return after additional epi. Patient remains unresponsive with responsive pupils without sedation. Requiring Levophed drip and greater than 30 mL/kg normal saline bolus was provided. Patient treated with antibiotics for aspiration, Levaquin and Flagyl with blood cultures pending. Repeat Covid test has been ordered although patient had a history of positive Covid test earlier this month. Case discussed with critical care attending. Throughout ED stay patient has developed repeated hypotension and hypoxia with adjustments in both FiO2 and Levophed drip performed by respiratory therapist and nurse. Patient also has post resuscitation hypothermia. Hospitalist Dr. Saunders informed for admission to ICU Critical Care Time: Yes Critical care time in (mins) excluding proc time.: 35 Critical care attestation.: If time is entered above; I have spent that time in minutes in the direct care of this critically ill patient, excluding procedure time. ED Disposition Clinical Impression: Cardiopulmonary arrest with successful resuscitation, Aspiration pneumonia, Lactic acidosis, Hypoxia, Elevated LFTs, Anemia, Hypotension Disposition: ADMITTED INPATIENT Is pt being admited?: Yes Condition: Critical Instructions: Bacterial Pneumonia (ED) Time of Disposition: 11:57
[2021-03-03 10:59] LABS: Alanine Aminotransferase 229 units/L (7-56); Albumin 2.2 g/dL (3.9-5); BUN/Creatinine Ratio 23; Blood Urea Nitrogen 28 mg/dL (9-20); Calcium 8.2 mg/dL (8.4-10.2); Hemolysis Index 22
[2021-03-03] MEDS ORDERED: EPINEPHrine 1 MG/10 ML SYRINGE ONE (11:10)
[2021-03-03 11:43] LABS: Bilirubin,Urine NEG (Negative); Blood,Urine NEG (Negative); Color,Urine Yellow (Yellow); Hyaline Casts,Urine 1 /LPF; Mucus,Urine FEW /HPF; Urobilinogen,Urine < 2.0 mg/dL (<2.0)
[2021-03-03] MEDS ORDERED: MINERAL OIL/PETROLATUM, WHITE OPHTH OINT 3.5 GM OU PRN (11:47)
[2021-03-03] MEDS ORDERED: LIP THERAPY VASELINE TP PRN (11:47)
[2021-03-03] MEDS ORDERED: HYDROmorphone 1 MG/1 ML INJ IV PRN ×2 (11:55)
[2021-03-03] MEDS ORDERED: ACETAMINOPHEN 325 MG TAB PO PRN ×2 (11:55)
[2021-03-03] MEDS ORDERED: oxyCODONE /ACETAMINOPHEN 5-325MG TAB PO PRN (11:55)
--- NOTE | 2021-03-03 11:55 | History and Physical Report ---
History of Present Illness Chief complaint: Unresponsive History of present illness: 75 YO Male [facility] Resident at [facility] with COPD, Alzheimers Disease, Coronavirus Infection Diagnosed on 02/15, Depression, HTN, Asthma, Vascular Dementia, Cerebral Atherosclerosis presents to ED for evaluation. Patient intubated and on ventilatory support at the time my evaluation and unable to provide history. Patient history provided by EMS staff, ED staff, [facility] facility staff. As well as patient family who was made available by telephone for interview. As per staff the patient was in his usual state of health this morning and was eating breakfast. Patient became unresponsive while eating breakfast. EMS was notified and upon arrival the patient was found to be in asystolic arrest. The patient was treated" with ACLS protocol and subsequently intubated and placed on ventilatory support and transported to [facility] for further care and evaluation of the aforementioned symptoms. The patient was seen and evaluated in the emergency department. All lab and imaging studies reviewed. Shortly after arrival in the emergency department the patient again experienced PEA arrest and was again treated" with ACLS protocol with eventual return of perfusing cardiac rhythm. Patient found to have acute hypoxemic respiratory failure, septic shock, suspected aspiration pneumonia, shock liver, metabolic acidosis, toxic metabolic encephalopathy, as well as suspected anoxic brain injury. Patient found to have poor prognosis. Patient admitted to ICU due to increased risk of worsening symptoms and multiple organ system failure. Patient found to have poor prognosis. Critical care team consulted in ED. No further history is obtainable. No prior admission for review. No medication listed at time of admission for reconciliation. Advanced care planning conducted in ED. Past History Past Medical History: hypertension, other (See HPI) Past Surgical History: No surgical history, Other (Reviewed) Social history: . denies: smoking, alcohol abuse, prescription drug abuse Family history: hypertension Medications and Allergies Allergies Allergy/AdvReac Type Severity Reaction Status Date / Time Penicillins Allergy Swelling Verified 11/02/15 09:07 Home Medications Medication Instructions Recorded Confirmed Last Taken Type ALPRAZolam [Alprazolam] 0.5 mg PO TID 09/20/15 11/02/15 11/01/15 History Albuterol Sulfate [Ventolin HFA] 2 puff IH TID 09/20/15 11/02/15 11/01/15 History Clopidogrel Bisulfate [Clopidogrel] 75 mg PO QDAY 09/20/15 11/01/1510/24/16 History Duloxetine HCl [Cymbalta] 30 mg PO QDAY 09/20/15 11/02/15 11/01/15 History Lisinopril 20 mg PO QDAY 09/20/15 11/02/15 11/01/15 History Theophylline Anhydrous ER (Nf) 300 mg PO BID 09/20/15 11/02/15 11/01/15 History [Avni-24] amLODIPine [Norvasc] 10 mg PO DAILY 09/20/15 11/02/15 11/01/15 History busPIRone [Buspar] 10 mg PO QDAY 09/20/15 11/02/15 11/01/15 History Active Meds: Active Medications Hydrophilic Ointment (Lip Therapy Vaseline) 1 applic TP Q2HR PRN PRN Reason: Dry Lips Norepinephrine (Levophed Drip 4 Mg/Ns 250 Ml) 4 mg in 250 mls @ 7.5 mls/hr IV TITR FABIANA; Protocol Last Admin: 03/03/21 10:00 Dose: 20 mcg/min, 75 mls/hr Documented by: Levofloxacin/Dextrose (Levaquin 750mg/150ml) 750 mg in 150 mls @ 100 mls/hr IV ONCE ONE; Protocol Stop: 03/03/21 12:17 Last Admin: 03/03/21 11:32 Dose: 100 mls/hr Documented by: Multi-Ingred Cream/Lotion/Oil/Oint (Mineral Oil/Petrolatum, White Ophth Oint 3.5 Gm) 1 applic OU Q4HR PRN PRN Reason: Dry Eye(s) Senna/Docusate Sodium (Sennosides/Docusate Sodium 8.6/50 Mg Tab) 1 tab FEEDTUBE BID FABIANA Review of Systems ROS unobtainable: due to endotracheal tube, due to mental status Exam - Constitutional Vitals: Temp Pulse Resp BP Pulse Ox 92.3 F L 70 15 96/52 83 L 03/03/21 11:33 03/03/21 11:30 03/03/21 11:30 03/03/21 11:30 03/03/21 11:41 General appearance: Present: severe distress - EENT Eyes: Present: miosis ENT: hearing decreased - Neck Neck: Present: supple, normal ROM - Respiratory Respiratory effort: labored, accessory muscle use Respiratory: bilateral: diminished, rhonchi - Cardiovascular Heart Sounds: Present: S1 & S2. Absent: rub, click - Extremities Extremities: pulses symmetrical, No edema Peripheral Pulses: abnormal (Capillary refill greater than 3.5 seconds) - Abdominal General gastrointestinal: Present: soft, non-tender, non-distended, normal bowel sounds Male genitourinary: Present: normal - Integumentary Integumentary: Present: clear, dry, clammy, decreased turgor - Musculoskeletal Musculoskeletal: generalized weakness - Psychiatric Psychiatric: no appropriate mood/affect, no intact judgment & insight, no memory intact - Neurologic Neurologic: CNII-XII intact, no focal deficits, moves all extremities, no gait normal HEART Score - HEART Score Troponin: Troponin T < 0.010 ng/mL (0.00-0.029) 03/03/21 10:23 Results - Labs CBC & Chem 7: 03/03/21 10:23 03/03/21 10:23 Labs: Abnormal lab results 03/03/21 03/03/21 03/03/21 Range/Units 10:21 10:23 10:23 WBC 24.7 H (4.5-11.0) K/mm3 RBC 2.66 L (3.65-5.03) M/mm3 Hgb 8.3 L (11.8-15.2) gm/dl Hct 26.7 L (35.5-45.6) % MCV 100 H (84-94) fl MCHC 31 L (32-34) % RDW 15.8 H (13.2-15.2) % PT (12.2-14.9) Sec. INR (0.87-1.13) APTT (24.2-36.6) Sec. ABG pH 7.033 L (7.320-7.450) POC ABG pO2 263.7 H (83-108) mmHg ABG Hemoglobin 9.1 L (12.0-17.5) ABG Oxyhemoglobin 98.5 H (94-98) ABG Chloride 111.0 H (98-107) mmol/L ABG Glucose 255 H (65-95) mg/dL Chloride 108.4 H (98-107) mmol/L Carbon Dioxide 14 L (22-30) mmol/L BUN 28 H (9-20) mg/dL Glucose 282 H (75-100) mg/dL Lactic Acid (0.7-2.0) mmol/L Calcium 8.2 L (8.4-10.2) mg/dL AST 392 H (5-40) units/L ALT 229 H (7-56) units/L Alkaline Phosphatase 138 H (35-129) units/L Total Protein 4.0 L (6.3-8.2) g/dL Albumin 2.2 L (3.9-5) g/dL Arterial Blood Glucose 255 H (65-95) mg/dL Arterial Blood Ionized Calcium 4.5 L (4.6-5.3) mg/dL 03/03/21 03/03/21 Range/Units 10:23 10:23 WBC (4.5-11.0) K/mm3 RBC (3.65-5.03) M/mm3 Hgb (11.8-15.2) gm/dl Hct (35.5-45.6) % MCV (84-94) fl MCHC (32-34) % RDW (13.2-15.2) % PT 17.4 H (12.2-14.9) Sec. INR 1.37 H (0.87-1.13) APTT 44.0 H (24.2-36.6) Sec. ABG pH (7.320-7.450) POC ABG pO2 (83-108) mmHg ABG Hemoglobin (12.0-17.5) ABG Oxyhemoglobin (94-98) ABG Chloride (98-107) mmol/L ABG Glucose (65-95) mg/dL Chloride (98-107) mmol/L Carbon Dioxide (22-30) mmol/L BUN (9-20) mg/dL Glucose (75-100) mg/dL Lactic Acid 11.40 H* (0.7-2.0) mmol/L Calcium (8.4-10.2) mg/dL AST (5-40) units/L ALT (7-56) units/L Alkaline Phosphatase (35-129) units/L Total Protein (6.3-8.2) g/dL Albumin (3.9-5) g/dL Arterial Blood Glucose (65-95) mg/dL Arterial Blood Ionized Calcium (4.6-5.3) mg/dL Assessment and Plan - Patient Problems (1) Septic shock Current Visit: Yes Status: Acute Plan to address problem: Sepsis protocol: CBC, CMP, IV antibiotic therapy, IV fluid resuscitation the rapy, monitor urine output every shift, monitor fluid balance, maintain mean arterial pressure greater than or equal to 65, blood culture., Serial lactic acid level, IV pressor support, The high probability of a clinically significant, sudden or life threatening deterioration of the [cardiac, pulmonary, renal, infectious disease] system(s) required my full and direct attention, intervention and personal management. The aggregate critical care time was [90] minutes. This time is in addition to time spent performing reported procedures but includes the following: [x] Data Review and interpretation [x] Patient assessment and monitoring of vital signs [x] Documentation [x] Medication orders and management (2) Acute hypoxemic respiratory failure Current Visit: Yes Status: Acute Plan to address problem: Patient intubated and on ventilatory support, critical care team consulted, wean vent as tolerated, sedation holiday, daily spontaneous breathing trial, (3) Toxic metabolic encephalopathy Current Visit: Yes Status: Acute Plan to address problem: Treat sepsis, neuro check, will consider CT brain when patient is clinically stable (4) Metabolic acidosis Current Visit: Yes Status: Acute Plan to address problem: Serial lactic acid level, IV fluid resuscitation therapy, repeat BMP in a.m. (5) Shock liver Current Visit: Yes Status: Acute Plan to address problem: Suspect secondary to sepsis, IV fluid resuscitation therapy, supportive care, poor prognosis. (6) Coronavirus infection Current Visit: Yes Status: Acute Plan to address problem: Continue medical management, supportive care. (7) Anoxic brain injury Current Visit: Yes Status: Acute Plan to address problem: Neuro check, CT scan brain when patient is clinically stable. Poor prognosis. (8) Severe malnutrition Current Visit: Yes Status: Acute Plan to address problem: Encourage increased oral intake when awake and alert only, dietary supplementati on. (9) DVT prophylaxis Current Visit: Yes Status: Acute Plan to address problem: SCDs bilateral lower extremities while in bed, prophylactic anticoagulation (10) Advance care planning Current Visit: Yes Status: Acute Plan to address problem: Disease education conducted, care plan discussed, diagnosis discussed, prognosis discussed, patient is full code, patient knowledges understanding agreement with care plan, +30 minutes.
[2021-03-03] MEDS ORDERED: metroNIDAZOLE/NS 500 MG/100 ML 500 MG/100 ML BAG IV SCH (12:00)
[2021-03-03 12:15] LABS: Myelocytes # (Manual) 0.5 K/mm3; Total Cells Counted 100
[2021-03-03 12:16] LABS: Platelet Estimate Consistent w Auto; RBC Morphology Normal
[2021-03-03] MEDS ORDERED: SODIUM CHLORIDE 0.9% 1000 ML IV SOLN IV ONE (12:55)
[2021-03-03] MEDS ORDERED: SODIUM BICARBONATE 150 MEQ in DEXTROSE 5% IN WATER 1,000 ML IV SCH (17:07)
[2021-03-03] MEDS ORDERED: fentaNYL 100 MCG/2 ML INJ IV PRN (17:46)
[2021-03-03] MEDS ORDERED: fentaNYL DRIP Premix 2,000 MCG/100 ML BAG IV SCH (18:00)
[2021-03-03] MEDS ORDERED: LORazepam 2 MG/ML VIAL IV PRN (18:58)
[2021-03-03] MEDS ORDERED: GLYCOPYRROLATE 0.4 MG/2 ML INJ IV PRN (18:58)
[2021-03-03] MEDS ORDERED: MORPHINE 2 MG/1 ML INJ IV PRN (18:58)
--- NOTE | 2021-03-03 19:32 | Event Note ---
Date: 03/03/21 75 YO Male [facility] Resident at [facility] with COPD, Alzheimers Disease, Coronavirus Infection Diagnosed on 02/15, Depression, HTN, Asthma, Vascular Dementia, Cerebral Atherosclerosis presents to ED for evaluation. Patient intubated and on ventilatory support at the time my evaluation and unable to provide history. Patient history provided by EMS staff, ED staff, correction facility staff. As well as patient family who was made available by telephone for interview. As per staff the patient was in his usual state of health this morning and was eating breakfast. Patient became unresponsive while eating breakfast. EMS was notified and upon arrival the patient was found to be in asystolic arrest. The patient was treated" with ACLS protocol and subsequently intubated and placed on ventilatory support and transported to [facility] for further care and evaluation of the aforementioned symptoms. The patient was seen and evaluated in the emergency department. All lab and imaging studies reviewed. Shortly after arrival in the emergency department the patient again experienced PEA arrest and was again treated" with ACLS protocol with eventual return of perfusing cardiac rhythm. Patient found to have acute hypoxemic respiratory failure, septic shock, suspected aspiration pneumonia, shock liver, metabolic acidosis, toxic metabolic encephalopathy, as well as suspected anoxic brain injury. Patient found to have poor prognosis. Patient admitted to ICU due to increased risk of worsening symptoms and multiple organ system failure Called by ED physician- patient intubated post cardiac arrest with ROSC. TTM not available Reviewed labs and ABGs- severe metabolic acidosis , lactic acidosis and hypoxia. Discussed with respiratory and nursing staff. Changes made to vent settings, bicarbonate infusion started. Full consult to follow.
[2021-03-03 19:47] VITALS: BP 0/0
[2021-03-03] MEDS ORDERED: VANCOMYCIN/NS 1 GM/250 ML 1 GM/250 ML BAG IV ONE (20:00)
[2021-03-03] MEDS ORDERED: MAGNESIUM SULFATE 1 GM/2ML (4 MEQ/1ML) INJ ONE (20:30)
[2021-03-03] MEDS ORDERED: CALCIUM GLUCONATE 2,000 MG in SODIUM CHLORIDE 0.9% 100 ML IV ONE (20:35)
--- NOTE | 2021-03-03 20:44 | Death Summary ---
Summary - Providers Consults: 03/03/21 11:29 Consult to Physician [CONS] Urgent Comment: Consulting Provider: AMARIS WINN Physician Instructions: Reason For Exam: cardiopulmonary arrest, aspiration 03/03/21 11:47 Consult to Dietitian/Nutrition [CONS] Routine Physician Instructions: Reason For Exam: Reason for Consult: Evaluate nutritional intake Attending: NIA CUNNINGHAM - summary Date of admission: 03/03/21 11:55 Date of : 03/03/21 Disposition: 75 YO Male [facility] Resident at [facility] with COPD, Alzheimers Disease, Coronavirus Infection Diagnosed on 02/15, Depression, HTN, Asthma, Vascular Dementia, Cerebral Atherosclerosis presented to ED for evaluation. Patient intubated and on ventilatory support at the time my evaluation and unable to provide history. Patient history provided by EMS staff, ED staff, custodial facility staff. As well as patient family who was made available by telephone for interview. As per staff the patient was in his usual state of health this morning and was eating breakfast. Patient became unresponsive while eating breakfast. EMS was notified and upon arrival the patient was found to be in asystolic arrest. The patient was treated" with ACLS protocol and subsequently intubated and placed on ventilatory support and transported to [facility] for further care and evaluation of the aforementioned symptoms. The patient was seen and evaluated in the emergency department. All lab and imaging studies reviewed. Shortly after arrival in the emergency department the patient again experienced PEA arrest and was again treated" with ACLS protocol with eventual return of perfusing cardiac rhythm. Patient found to have acute hypoxemic respiratory failure, septic shock, suspected aspiration pneumonia, shock liver, metabolic acidosis, toxic metabolic encephalopathy, as well as suspected anoxic brain injury. Patient found to have poor prognosis. Patient admitted to ICU due to increased risk of worsening symptoms and multiple organ system failure. Patient status discussed with his son Galen Grewal, who is the medical decision maker. Poor prognosis discussed. Patient son elected to make patient DNR at this time and initiate comfort care measures. Patient found to have absent brainstem reflexes, patient pupils are fixed and dilated on neurologic exam. Patient was found to have absent lung sounds on lung exam. Patient was found to have absent heartbeat on cardiac exam. Asystole was found on the threat monitoring analyst. Patient pronounced at 1940 hrs. - Final diagnosis (1) Septic shock Note: Final diagnosis: (2) Coronavirus infection Note: Final diagnosis: (3) Acute hypoxemic respiratory failure Note: Final diagnosis: (4) Toxic metabolic encephalopathy Note: Final diagnosis: (5) Metabolic acidosis Note: Final diagnosis: (6) Shock liver Note: Final diagnosis: (7) Anoxic brain injury Note: Final diagnosis: (8) Severe malnutrition Note: Final diagnosis: (9) DVT prophylaxis Note: Final diagnosis: (10) Advance care planning Note: Final diagnosis:
[2021-03-03] MEDS ORDERED: SENNOSIDES/DOCUSATE SODIUM 8.6/50 MG TAB FEEDTUBE SCH (22:00)
--- NOTE | 2021-03-04 13:06 | Electrocardiograph Report ---
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
== END 2021-03-04 00:43 ==
LOC: ED 09:47 → CC1 11:55 → UNDOADMIN 11:55 → ED 03-04 00:43
DX: I46.9 Cardiac arrest, cause unspecified (principal); J69.0 Pneumonitis due to inhalation of food and vomit; K72.00 Acute and subacute hepatic failure without coma; E87.2 Acidosis; R09.02 Hypoxemia; R74.01 Elevation of levels of liver transaminase levels; D64.9 Anemia, unspecified; I95.9 Hypotension, unspecified; J45.909 Unspecified asthma, uncomplicated; F03.90 Unspecified dementia, unspecified severity, without behavioral disturbance, psychotic disturbance, mood disturbance, and anxiety; Z88.0 Allergy status to penicillin
CPT/HCPCS: 36556; 36600; 71045; 80053; 81001; 82140; 82805; 82962; 83735; 84484; 85025; 85610; 85730; 86850; 86900; 86901; 87040; 87070; 87205; 92950; 93005; 96365; 96366; 96367; 99291; J0171; J1956; J3010; J3475; J7030; J7070; 94002; 96368